=== PATIENT | female | born 1960 | race Two or more races ===

== ENCOUNTER 2024-11-14 14:53 | Emergency (ER) | payer OTHER ==
[~2024-11-14] VITALS: Ht 162.6 cm; Wt 97.0 kg
[2024-11-14 14:53] VITALS: TEMP 97.2
[2024-11-14 15:13] VITALS: PULSE 100; RESP 20; O2SAT 96
--- NOTE | 2024-11-14 15:45 | ED.PDOC ---
HPI Comments 63 y/o F, BIBA, with PMHx of HTN, DM II, and hyperthyroidism presents to the ED for CC of chest pain. EMS reports, patient is coming from home where she complains of substernal chest pain that radiates from her abdomen xdays. EMS relays, patient endorses associated symptoms generalized weakness, nausea, vomiting, diarrhea, and dizziness. Patient comments, that she self medicated with 324mg of ASA at home in an attempt to relieve symptom; which was unsuccessful. In route to ED, patient was given 0.4mg of Nitro and 4mg of Zofran. Patient denies shortness of breath, headache, or palpations. No other symptoms or modifying factors present at this time. Chief Complaint: Chest Pain Time Seen by MD: 15:45 Primary Care Provider: UNKNOWN Reviewed Notes: Nurses Notes, Cooling Room Attendant Notes, Medications, Allergies Allergies: Coded Allergies: Codeine (Verified Allergy, Severe, 11/14/24) Information Source: Patient, Emergency Med Personnel Mode of Arrival: EMS Severity: Moderate Timing: Days Duration: Since onset Prehospital treatment: None Location: Substernal Radiation: Abdomen Onset: At Rest Cardiac Risk Factors: None PE Risk Factors: None History of: None Modifying Factors: Nothing Associated Signs and Symptoms: Abdominal Pain, N/V Past Medical History PAST MEDICAL HISTORY: DM, HTN, Thyroid 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 MACHINE History: Unknown Family History Family History: Unknown Social History Smoker: Non-Smoker Alcohol: Denies ETOH Use Drugs: Denies Drug Use Lives In: Home Constitutional: reports: weakness; denies: chills, diaphoresis, fatigue, fever, malaise, sweats, others EENTM: denies: blurred vision, double vision, ear bleeding, ear discharge, ear drainage, ear pain, ear ringing, eye pain, eye redness, hearing loss, mouth pain, mouth swelling, nasal discharge, nose bleeding, nose congestion, nose pain, photophobia, tearing, throat pain, throat swelling, voice changes, others Respiratory: denies: cough, hemoptysis, orthopnea, SOB at rest, shortness of breath, SOB with excertion, stridor, wheezing, others Cardiovascular: denies: chest pain, dizzy spells, diaphoresis, Dyspnea on exertion, edema, irregular heart beat, left arm pain, lightheadedness, palp itations, PND, syncope, others Gastrointestinal: reports: abdominal pain, diarrhea, nausea, vomiting; denies: abdomen distended, blood streaked bowels, constipated, dysphagia, difficulty swallowing, hematemesis, melena, poor appetite, poor fluid intake, rectal bleeding, rectal pain, others Genitourinary: denies: abnormal vagina bleeding, burning, dyspareunia, dysuria, flank pain, frequency, hematuria, incontinence, pain, , vagina discharge, urgency, others Neurological: reports: dizziness; denies: fainting, headache, left sided numbness, left sided weakness, numbness, paresthesia, pre-existing deficit, right sided numbness, right sided weakness, seizure, speech problems, tingling, tremors, weakness, others Musculoskeletal: denies: back pain, gout, joint pain, joint swelling, muscle pain, muscle stiffness, neck pain, others Integumetry: denies: bruises, change in color, change in hair/nails, dryness, laceration, lesions, lumps, rash, wounds, others Allergic/Immunocompromised: denies: Difficulty Healing, Frequent Infections, Hives, Itching, others Hematologic/Lymphatic: denies: anemia, blood clots, easy bleeding, easy bruisin g, swollen glands, others Endocrine: denies: excessive hunger, excessive sweating, excessive thirst, excessive urination, flushing, intolerance to cold, intolerance to heat, unexplained weight gain, unexplained weight loss, others Psychiatric: denies: anxiety, bipolar disorder, depression, hopeless, panic disorder, schizophrenia, sleepless, suicidal, others All Other Systems: Reviewed and Negative Physical Exam Exam Comments Patient with chest pain and shortness of breath came in for further care had history of diabetes hypertension and stents General Appearance: Moderate Distress, Obese HEENT: Normal ENT Inspection, Pharynx Normal, TMs Normal Neck: Full Range of Motion, Non-Tender, Normal, Normal Inspection Respiratory: Chest Non-Tender, Lungs Clear, No Accessory Muscle Use, No Respiratory Distress, Normal Breath Sounds Cardiovascular: No Edema, No JVD, No Murmur, No Gallop, Normal Peripheral Pulses, Regular Rate/Rhythm Breast Exam: Deferred Gastrointestinal: No Organomegaly, Non Tender, No Pulsatile Mass, Normal Bowel Sounds, Soft Genitalia: Deferred Pelvic: Deferred Rectal: Deferred Extremities: No calf tenderness, Normal capillary refill, Normal inspection, Normal range of motion, Non-tender, No pedal edema Neurologic: Alert, clinical trial leader II-XII nml as Tested, No Motor Deficits, Normal Affect, Normal Mood, No Sensory Deficits Cerebellar Function: Normal Reflexes: Normal Skin: Dry, Normal Color, Warm Peripheral Pulses: 1+ carotid (R), 1+ carotid (L) Lymphatic: No Adenopathy EKG EKG : Pulse Rate (adult): 83 [place]: Normal Cardiac Rhythm: NSR, PVC's Was a procedure done? Was a procedure done?: No CP Differential Dx Differential Diagnosis: Angina, Anxiety / Panic Attack, Electrolyte Disorder, Heart Failure, NC, PVC's Differential Diagnosis: HTN Essential Differential Diagnosis: Angina, Chest Wall Pain, Costochondritis, Esophageal reflux/spasm, Myocardial Infarction, Pneumonia X-Ray, Labs, Meds, VS Vital Signs Date Time Temp Pulse Resp B/P (MAP) Pulse Ox O2 Delivery O2 Flow Rate FiO2 11/14/24 17:23 83 11/14/24 15:13 100 20 96 Room Air* 0 21 11/14/24 15:01 83 11/14/24 14:53 97.2 81 15 123/63 (83) 98 97.2 Lab Test 11/14/24 16:20 11/14/24 15:16 Range/Units Troponin I High Sensitivity < 3 L < 3 L </=34 ng/L White Blood Count 13.5 H 4.4-10.8 10^3/uL Red Blood Count 4.69 4.0-5.20 10^6/uL Hemoglobin 15.2 12.2-16.2 g/dL Hematocrit 44.0 36.0-46.0 % Mean Corpuscular Volume 93.7 80.0-100.0 fL Mean Corpuscular Hemoglobin 32.5 H 28.0-32.0 pg Mean Corpuscular Hemoglobin Concent 34.6 32.0-36.0 g/dL Red Cell Distribution Width 14.8 H 11.8-14.3 % Platelet Count 233 140-450 10^3/uL Mean Platelet Volume 8.7 6.9-10.8 fL Neutrophils (%) (Auto) 84.3 H 37.0-80.0 % Lymphocytes (%) (Auto) 6.7 L 10.0-50.0 % Monocytes (%) (Auto) 5.0 0.0-12.0 % Eosinophils (%) (Auto) 3.6 0.0-7.0 % Basophils (%) (Auto) 0.4 0.0-2.0 % Neutrophils # (Auto) 11.4 H 1.6-8.6 10 ^3/uL Lymphocytes # (Auto) 0.9 0.4-5.4 10 ^3/uL Monocytes # (Auto) 0.7 0-1.3 10 ^3/uL Eosinophils # (Auto) 0.5 0-0.8 10 ^3/uL Basophils # (Auto) 0.1 0-0.2 10 ^3/uL Nucleated Red Blood Cells 0.1 % Prothrombin Time 10.3 9.3-11.8 sec Prothrombin Time INR 0.97 0.9-1.15 Activated Partial Thromboplast Time 24.3 L 24.5-34.5 SEC Sodium Level 138 136-145 mmol/L Potassium Level 4.7 3.5-5.1 mmol/L Chloride Level 103 98-107 mmol/L Carbon Dioxide Level 26 20-31 mmol/L Anion Gap 9 5-15 Blood Urea Nitrogen 14 9-23 mg/dL Creatinine 0.94 0.550-1.02 mg/dL Glomerular Filtration Rate Calc 69 >90 mL/min BUN/Creatinine Ratio 14.9 10.0-20.0 Serum Glucose 264 H 74-106 mg/dL Calcium Level 10.5 H 8.7-10.4 mg/dL Magnesium Level 1.6 1.6-2.6 mg/dL Total Bilirubin 0.8 0.2-1.0 mg/dL Aspartate Amino Transferase (AST) 17 13-40 U/L Alanine Aminotransferase (ALT) 53 H 7-40 U/L Alkaline Phosphatase 104 46-116 U/L Total Protein 7.2 5.7-8.2 g/dL Albumin 4.5 3.2-4.8 g/dL Current Medications Medications (Trade) Dose Ordered Sig/Gerhard Route Start Time Stop Time Status Last Admin Aspirin 162 mg ONCE ONCE PO 11/14/24 17:30 11/14/24 17:31 DC 11/14/24 17:56 Ondansetron HCl (Zofran) 4 mg ONCE ONCE IV 11/14/24 17:30 11/14/24 17:31 DC 11/14/24 18:02 Sodium Chloride 1,000 ml @ 150 mls/hr Q6H40M ONCE IV 11/14/24 17:30 11/15/24 00:09 11/14/24 17:56 X-Ray, Labs, Meds, VS Comment Course in the emergency department eventful patient came in complaining of chest pain nausea and vomiting The chest x-ray is normal EKG shows normal sinus rhythm at 83 with PACs CBC [address]71 with 84% neutrophils and normal H&H INR 0.97 CMP blood sugar is 264 Magnesium 1.6 Troponin three and three Patient will be admitted for further care Time of 1ST Reevaluation: 16:15 Reevaluation 1ST: Unchanged Time of 2ND Reevaluation: 18:48 Reevaluation 2ND: Unchanged Patient Education/Counseling: Diagnosis, Treatment, Prognosis Family Education/Counseling: Diagnosis, Treatment, Prognosis, No Family Present Departure 1 Departure Time of Disposition: 18:48 Impression: Primary Impression: Chest pain Qualified Codes: I20.0 - Unstable angina Additional Impressions: CAD S/P percutaneous coronary angioplasty Uncontrolled diabetes mellitus Ruled Out: Pneumonia Disposition: ADMITTED INPATIENT Admit to: Tele Condition: Serious Critical Care Note Critical Care Time?: No Stability Stability form required: Yes Unstable for transfer: Telemetry monitoring (Telemetry monitoring required), Requires medication Heart Score Heart Score: Heart Score Response (Comments) Value History Moderate Suspicious 1 EKG Repolarization Disturb 1 Age 45-64 1 Risk Factors 1 or 2 risk factors 1 Troponin Normal limit 0 Total 4 I personally scribed for DOLORES PENDLETON MD ([email or web address]) on 11/14/24 at 15:45. Electronically submitted by Alivia Morales ([email or web address]). I personally scribed for DOLORES PENDLETON MD ([email or web address]) on 11/14/24 at 15:55. Electronically submitted by Alivia Morales ([email or web address]). I personally scribed for DOLORES PENDLETON MD ([email or web address]) on 11/14/24 at 17:08. Electronically submitted by Alivia Morales ([email or web address]). DOLORES PENDLETON MD Nov 14, 2024 15:45
[2024-11-14 17:53] LABS: Basophils # (auto) 0.1 10 ^3/uL (0-0.2); Basophils % (auto) 0.4 % (0.0-2.0); Eosinophils # (auto) 0.5 10 ^3/uL (0-0.8); Eosinophils % (auto) 3.6 % (0.0-7.0); Hemoglobin 15.2 g/dL (12.2-16.2); Lymphocytes # (auto) 0.9 10 ^3/uL (0.4-5.4); Lymphocytes % (auto) 6.7 % (10.0-50.0); Mean Corpuscular Hemoglobin 32.5 pg (28.0-32.0); Mean Corpuscular Hgb Conc. 34.6 g/dL (32.0-36.0); Mean Corpuscular Volume 93.7 fL (80.0-100.0); Monocytes # (auto) 0.7 10 ^3/uL (0-1.3); Neutrophils # (auto) 11.4 10 ^3/uL (1.6-8.6); Neutrophils % (auto) 84.3 % (37.0-80.0); Nucleated Red Blood Cells % 0.1 %; Platelet Count (auto) 233 10^3/uL (140-450); Red Blood Cells 4.69 10^6/uL (4.0-5.20); Red Cell Distribution Width 14.8 % (11.8-14.3); White Blood Cell 13.5 10^3/uL (4.4-10.8)
[2024-11-14] MEDS: SODIUM CHLORIDE 0.9% 1,000 ML IV ONE (17:56)
[2024-11-14] MEDS: ASPirin 81 mg TAB PO ONE (17:56)
[2024-11-14] MEDS: ONDANSETRON HCL 4 MG/2 ML VIAL IV ONE (18:02)
[2024-11-14 18:04] LABS: Albumin 4.5 g/dL (3.2-4.8); Alkaline Phosphatase 104 U/L (46-116); Anion Gap 9 (5-15); Aspartate Aminotransferase 17 U/L (13-40); BUN/Creatinine Ratio 14.9 (10.0-20.0); Bilirubin, Total 0.8 mg/dL (0.2-1.0); Blood Urea Nitrogen 14 mg/dL (9-23); Carbon Dioxide 26 mmol/L (20-31); Chloride 103 mmol/L (98-107); Potassium 4.7 mmol/L (3.5-5.1); Sodium 138 mmol/L (136-145); Total Protein 7.2 g/dL (5.7-8.2)
[2024-11-14 18:11] LABS: INR 0.97 (0.9-1.15); Partial Thromboplastin Time 24.3 SEC (24.5-34.5); Prothrombin Time 10.3 sec (9.3-11.8)
[2024-11-14 18:25] LABS: Alanine Aminotransferase 53 U/L (7-40); Calcium 10.5 mg/dL (8.7-10.4); Glucose 264 mg/dL (74-106); Magnesium 1.6 mg/dL (1.6-2.6)
--- NOTE | 2024-11-14 18:39 | ECG ---
[facility] Test Date: 2024-11-14 Test Time: 14:59:08 Pat Name: EDEN PALMA Department: ED Room: Gender: F [employer] Package Symbol Stamper: JESI : 1960 Requested By: DOLORES PENDLETON Order Number: [id number] Reading MD: Clif Denney Measurements Intervals [place] Rate: 83 P: 60 TN: 145 QRS: 34 QRSD: 102 T: 9 QT: 381 QTc: 448 Interpretive Statements Sinus rhythm poor R-wave progression across precordial leads Ventricular premature complex Low voltage, precordial leads RSR' in V1 or V2, right VCD or RVH Electronically Signed On 11-15-2024 8:37:37 PDT by Clif Denney Please click the below link to view image of tracing.
--- NOTE | 2024-11-14 18:41 | DVH ---
XY CHEST TWO VIEWS ROUTINE CLINICAL HISTORY: cp COMPARISON: None TECHNIQUE: Frontal and lateral view of the chest was obtained FINDINGS: Lines and Tubes: Postop changes lower cervical spine Lungs: No focal consolidation. Pleura: No effusion. No pneumothorax. Cardiomediastinal contours: Unremarkable Bones: No acute osseous abnormality. IMPRESSION: 1. No acute cardiopulmonary disease.
--- NOTE | 2024-11-14 20:33 | ED.PDOC ---
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 zara irwin md . Patient is feeling well and will discharge patient home.) Impression: Primary Impression: Chest pain Qualified Codes: I20.0 - Unstable angina Additional Impressions: CAD S/P percutaneous coronary angioplasty Uncontrolled diabetes mellitus Qualified Codes: E11.65 - Type 2 diabetes mellitus with hyperglycemia Ruled Out: Pneumonia Disposition: HOME / SELF CARE / HOMELESS Condition: Stable Heart Score Heart Score: Heart Score Response (Comments) Value History Slightly Suspicious 0 EKG Normal 0 Age 45-64 1 Risk Factors >3 or Hx ASHD 2 Troponin Normal limit 0 Total 3 TIFFANY LIMON MD Nov 14, 2024 20:33
[2024-11-14 21:34] VITALS: BP 105/60; PULSE 83; RESP 14; O2SAT 92
== END 2024-11-14 21:46 | disposition home or self-care (01) ==
LOC: EDBD 14:53 → ER 14:59
DX: I25.10 Atherosclerotic heart disease of native coronary artery without angina pectoris (principal); E11.65 Type 2 diabetes mellitus with hyperglycemia; I10 Essential (primary) hypertension; Z95.811 Presence of heart assist device; Z88.5 Allergy status to narcotic agent
CPT/HCPCS: 36415; 71046; 80053; 82947; 83735; 84484; 85025; 85610; 85730; 93005; 96361; 96374; 99285; J2405; J7030